=== PATIENT | male | born 1980 | race Caucasian/White ===

== ENCOUNTER 2024-08-19 09:05 | Emergency (ER) | payer OTHER ==
[~2024-08-19] VITALS: Ht 182.8 cm; Wt 72.6 kg
[2024-08-19] MEDS ORDERED: Ondansetron Hydrochloride 4 MG/2 ML VIAL IV ONE (09:55)
[2024-08-19] MEDS ORDERED: MORPHINE Sulfate 2 MG/ML SYR IV ONE (09:55)
[2024-08-19] MEDS ORDERED: IOHEXOL 300 MG/ML 100 ML VIAL IV ONE (10:05)
[2024-08-19 10:13] LABS: BASO % 0.2 % (0.0-1.0); EOS # 0.1 10*3/uL (0.0-0.4); EOS % 0.7 % (1.0-4.0); HEMATOCRIT 44.5 % (42.0-52.0); MEAN CELL VOLUME 90.6 fl (80.0-94.0); MEAN CORPUSCULAR HGB CONC 35.3 g/dl (33.0-37.0); MEAN PLATELET VOLUME 9.5 fl (9.6-12.3); MONO # 0.4 10*3/uL (0.1-1.0); MONO % 3.8 % (3.0-9.0); NEUT # 8.1 10*3/uL (2.3-7.9); NEUT % 88.1 % (47.0-73.0); PLATELET COUNT AUTOMATED 238 10*3/uL (130-400); RED BLOOD COUNT 4.91 10*6/uL (4.50-5.90); RED CELL DISTRI WIDTH 11.9 % (0-14.5); WHITE BLOOD COUNT 9.2 10*3/uL (4.8-10.8)
[2024-08-19] MEDS ORDERED: IOHEXOL 300 MG/ML 100 ML VIAL ONE (10:23)
[2024-08-19 10:34] LABS: ALKALINE PHOSPHATASE 52 U/L (46-116); BUN 13 mg/dl (9-23); LIPASE 33 U/L (12-53); SGPT/ALT 13 U/L (5-49)
[2024-08-19 10:38] LABS: CHLORIDE 110 mmol/L (98-107); POTASSIUM 3.6 mmol/L (3.4-5.1)
[2024-08-19 10:52] LABS: BILIRUBIN Negative (Negative); BLOOD Negative (Negative); CLARITY Clear (Clear); COLOR Yellow (Yellow); GLUCOSE Negative (Negative); KETONE 1+ (Negative); LEUKO ESTERASE Negative (Negative); NITRITE Negative (Negative); UROBILINOGEN 0.2 E.U./dl (0.0-1.0)
[2024-08-19 10:58] LABS: PH >= 9.0 (4.5-8.0)
[2024-08-19 11:10] LABS: WBC 0-2 wbc/hpf (0-5)
[2024-08-19] MEDS ORDERED: Ondansetron4 MG PO (12:27)
[2024-08-19] MEDS ORDERED: METRONIDAZOLE500 M1 PO (12:27)
[2024-08-19] MEDS ORDERED: CIPRO500 MG PO (12:27)
== END 2024-08-19 12:36 | disposition home or self-care (01) ==
LOC: ED 09:05
PROVIDERS: Internal Medicine
DX: K52.9 Noninfective gastroenteritis and colitis, unspecified (principal)